=== PATIENT | female | born 1990 | race African-American/Black ===

== ENCOUNTER 2019-09-15 01:13 | Emergency (ER) | payer OTHER ==
[~2019-09-15] VITALS: Ht 160 cm; Wt 61.7 kg
[~2019-09-15 01:13] MED LIST: BACTRIM DS TAB1 EACH PO; DIFLUCAN150 MG PO; PHENAZOPYRIDIN200 M2 PO
[2019-09-15 02:49] VITALS: BP 135/79
== END 2019-09-15 02:50 | disposition home or self-care (01) ==
LOC: ER 01:13
DX: O99.511 Diseases of the respiratory system complicating pregnancy, first trimester (principal); Z3A.01 Less than 8 weeks gestation of pregnancy; Z20.828 Contact with and (suspected) exposure to other viral communicable diseases; F17.210 Nicotine dependence, cigarettes, uncomplicated; Z88.2 Allergy status to sulfonamides; Z88.1 Allergy status to other antibiotic agents